=== PATIENT | female | born 1955 ===

== ENCOUNTER 2017-01-04 08:02 | Day surgery (SDC) | payer OTHER ==
[2017-01-04 08:41] VITALS: BMI 24.2
[2017-01-04] MEDS ORDERED: Lidocaine Hydrochloride 5 ML INJ ONE (10:30)
[2017-01-04] MEDS ORDERED: Propofol 10 mg/ml Inj (20 ML) ONE (10:30)
[2017-01-04] MEDS ORDERED: Lactated Ringer's 500 ML IV SCH (10:45)
[2017-01-04 12:56] VITALS: TEMP 98.4
[2017-01-04 12:59] VITALS: O2SAT 98
[2017-01-04 13:05] VITALS: BP 132/72; PULSE 87; RESP 15
== END 2017-01-04 12:25 | disposition home or self-care (01) ==
LOC: C.ENDO 08:02
PROVIDERS: ATTEND Internal Medicine Gastroenterology
DX: K29.50 Unspecified chronic gastritis without bleeding (principal); K20.9 Esophagitis, unspecified; K64.8 Other hemorrhoids
CPT/HCPCS: 43239; 45378; 88305; J2704; J3010; J7120

== ENCOUNTER 2017-11-17 18:09 | Emergency (ER) | payer MEDICAID, OTHER ==
[2017-11-17 18:09] VITALS: BMI 24.2
[2017-11-17] MEDS ORDERED: Sodium Chloride 0.9% 500 ML IV ONE ×3 (19:22→20:06)
[2017-11-17 19:38] LABS: BASO # 0.1 K/uL (0.0-0.2); BASO % 1.1 % (0.0-2.0); EOS # 0.1 K/uL (0.0-0.7); EOS % 1.4 % (0.0-4.0); HEMOGLOBIN 12.2 g/dL (11.0-16.0); LYMPH # 3.5 K/uL (1.0-4.3); MEAN CELL VOLUME 89.4 fL (81.0-99.0); MEAN CORPUSCULAR HEMOGLOBIN 30.6 pg (27.0-31.0); MEAN CORPUSCULAR HGB CONC 34.2 g/dL (33.0-37.0); MEAN PLATELET VOLUME 8.9 fL (7.2-11.7); MONO # 0.5 K/uL (0.0-0.8); MONO % 5.4 % (0.0-10.0); NEUT # 4.4 K/uL (1.8-7.0); NEUT % 51.1 % (50.0-75.0); NRBC % 0.1 % (0.0-2.0); RBC 3.99 Mil/uL (3.80-5.20); RED CELL DISTRIBUTION WIDTH 13.9 % (11.5-14.5); WHITE BLOOD COUNT 8.6 K/uL (4.8-10.8)
[2017-11-17 19:41] LABS: SQUAMOUS EPITHIAL < 1 /hpf (0-5); URINE BILIRUBIN NEGATIVE (NEGATIVE); URINE BLOOD 2+ (NEGATIVE); URINE CLARITY Clear (Clear); URINE COLOR Straw (YELLOW); URINE GLUCOSE (UA) NORMAL (Normal); URINE LEUKOCYTE ESTERASE NEG Leu/uL (Negative); URINE PROTEIN NEGATIVE (NEGATIVE); URINE UROBILINOGEN NORMAL mg/dL (0.2-1.0)
[2017-11-17 19:54] LABS: D DIMER < 200 ng/mlDDU (0-243); PARTIAL THROMBOPLASTIN TIME 31 SECONDS (21-34); PROTHROMBIN TIME 11.8 SECONDS (9.7-12.2)
[2017-11-17 20:03] LABS: ALB/GLOB RATIO 1.4 (1.0-2.1); ALBUMIN 4.7 g/dL (3.5-5.0); ALT/SGPT 13 U/L (9-52); AST/SGOT 22 U/L (14-36); B-TYPE NATRIURETIC PEPTIDE 25.5 pg/mL (0-900); BLOOD UREA NITROGEN 14 mg/dL (7-17); CALCIUM 9.7 mg/dl (8.6-10.4); GFR AFRICAN-AMERICAN > 60; GFR NON-AFRICAN AMERICAN > 60
--- NOTE | 2017-11-17 21:54 | CT ---
EXAM: CT Head Without Intravenous Contrast EXAM DATE/TIME: Exam ordered 11/17/2017 8:06 PM CLINICAL HISTORY: 62 years old, female; Signs and symptoms; Dizziness; Additional info: Dizziness. Headache. TECHNIQUE: Axial computed tomography images of the head/brain without intravenous contrast. All CT scans at this facility use one or more dose reduction techniques, viz.: automated exposure control; ma/kV adjustment per patient size (including targeted exams where dose is matched to indication; i.e. head); or iterative reconstruction technique. COMPARISON: No relevant prior studies available. FINDINGS: Brain: Basal ganglia calcification is present. No hemorrhage. No significant white matter disease. Ventricles: Unremarkable. No ventriculomegaly. Bones/joints: Unremarkable. No acute fracture. Soft tissues: Unremarkable. Sinuses: Unremarkable as visualized. No acute sinusitis. Mastoid air cells: Unremarkable as visualized. No mastoid effusion. IMPRESSION: No acute findings.
--- NOTE | 2017-11-17 22:01 | C.PDOC ---
Time Seen by Provider: 11/17/17 19:11 Chief Complaint (Nursing): Dizziness/Lightheaded History Per: Patient, Auto Tech History/Exam Limitations: language barrier Onset/Duration Of Symptoms: Days (1) Current Symptoms Are (Timing): Better Current Symptoms: Malaise Associated Symptoms Preceding Syncopal Episode: Lightheadedness Fall Associated With With Symptoms: No Severity: Moderate Additional History Per: Prior Records - Symptoms Of CVA Recent Head Trauma: No Past Medical History Reviewed: Historical Data, Nursing Documentation, Vital Signs Vital Signs: Last Vital Signs Temp 98.5 F 11/17/17 19:32 Pulse 88 11/17/17 20:44 Resp 16 11/17/17 20:44 BP 147/81 11/17/17 20:44 Pulse Ox 100 11/17/17 20:44 - Medical History PMH: Anxiety, HTN, Hypercholesterolemia Surgical History: Endoscopy Family History: States: Unknown Family Hx - Social History Hx Tobacco Use: No Hx Alcohol Use: No Hx Substance Use: No Review Of Systems Except As Marked, All Systems Reviewed And Found Negative. Constitutional: Positive for: Malaise. Negative for: Fever Cardiovascular: Positive for: Light Headedness. Negative for: Chest Pain Respiratory: Negative for: Hemoptysis Gastrointestinal: Negative for: Vomiting, Diarrhea Genitourinary: Negative for: Dysuria Musculoskeletal: Negative for: Neck Pain Skin: Negative for: Rash Neurological: Positive for: Headache. Negative for: Weakness, Numbness, Change in Speech, Confusion, Seizures, Altered Mental Status Physical Exam - Physical Exam Appears: Non-toxic, No Acute Distress Skin: Normal Color, Warm, Dry, No Rash Head: Atraumatic, Normacephalic Eye(s): bilateral: Normal Inspection, PERRL, EOMI Ear(s): Bilateral: Normal Neck: Normal ROM, Supple Cardiovascular: Rhythm Regular Respiratory: Normal Breath Sounds, No Accessory Muscle Use Gastrointestinal/Abdominal: Soft, No Tenderness Back: No CVA Tenderness Extremity: Normal ROM Neurological/Psych: Oriented x3, Normal Speech, Normal Cognition, Normal Cranial Nerves, No Cerebellar Signs, Normal Motor, Normal Sensation ED Course And Treatment - Laboratory Results Result Diagrams: 11/17/17 19:34 11/17/17 19:34 Lab Interpretation: No Acute Changes ECG: Interpreted By Me, Viewed By Me ECG Rhythm: Sinus Rhythm ECG Interpretation: No Acute Changes Rate From EC O2 Sat by Pulse Oximetry: 100 Pulse Ox Interpretation: Normal - Radiology CXR: Interpreted by Me, Viewed By Me CXR Interpretation: Yes: No Acute Disease - CT Scan/US CT head Other Rad Studies (CT/US): Read By Radiologist, Radiology Report Reviewed CT/US Interpretation: IMPRESSION: No acute findings. Progress Note: Pt feels much better and wants to go home. Reassessment Condition: Improved Progress - Interventions Interventions:: Observation, Intravenous fluid - Data Reviewed Data Reviewed: Lab, Diagnostic imaging, EKG, Old records - Patient Status Patient status: Completely improved - Continuity of Care Discussed patient case with:: Patient, ED Nurse - Patient Plan Patient Plan: Discharge, F/U with PCP, Continue present meds Disposition Counseled Patient/Family Regarding: Studies Performed, Diagnosis, Need For Followup - Disposition Referrals: Lico Allen MD [Staff Provider] - Disposition: HOME/ ROUTINE Disposition Time: 22:04 Condition: IMPROVED Additional Instructions: Follow up with your doctor for further evaluation and treatment. Return to the ER if you pass out, develop chest pain, shortness of breath, weakness, numbness , worsening of symptoms or if you have any other concerns. Instructions: Dizziness, Nonvertigo, (DC) Forms: Gen Discharge Inst Uzbek Print Language: AMHARIC - Clinical Impression Clinical Impression: Dizziness
[2017-11-17 22:12] VITALS: BP 136/75; PULSE 79; RESP 18; TEMP 98.8; O2SAT 98
--- NOTE | 2017-11-18 15:40 | RAD ---
PROCEDURE: CHEST RADIOGRAPH, 1 VIEW HISTORY: SOB COMPARISON: Comparison chest dated 12/27/2016. FINDINGS: LUNGS: Clear. PLEURA: No pneumothorax or pleural fluid seen. CARDIOVASCULAR: Normal. OSSEOUS STRUCTURES: Mild multilevel degenerative spondylosis of the thoracic spine VISUALIZED UPPER ABDOMEN: Normal. OTHER FINDINGS: None. IMPRESSION: No active disease.
== END 2017-11-17 22:14 | disposition home or self-care (01) ==
LOC: C.ER 18:09
DX: R42 Dizziness and giddiness (principal)
CPT/HCPCS: 70450; 71045; 80053; 81001; 82948; 83735; 83880; 84484; 85025; 85378; 85610; 85730; 96360; 99285; J7040

== ENCOUNTER 2018-09-07 10:22 | Outpatient (CLI) | payer OTHER | END 2018-09-07 10:23 | disposition home or self-care (01) | LOC: C.LAB 10:22 ==